=== PATIENT | male | born 1940 | race Caucasian/White ===

== ENCOUNTER 2016-07-29 08:45 | Emergency (ER) | payer MEDICARE, OTHER | END 2016-07-29 09:47 | disposition home or self-care (01) | LOC: FER 08:45 | DX: S09.90XA Unspecified injury of head, initial encounter (principal); R41.3 Other amnesia; W22.8XXA Striking against or struck by other objects, initial encounter; Y92.009 Unspecified place in unspecified non-institutional (private) residence as the place of occurrence of the external cause | CPT/HCPCS: 99283 ==